=== PATIENT | female | born 1995 | race Native Hawaiian/Other Pacific Islander ===

== ENCOUNTER 2022-01-02 06:42 | Emergency (ER) | payer OTHER ==
[~2022-01-02] VITALS: Ht 165.1 cm; Wt 96.8 kg
[2022-01-02] MEDS ORDERED: LIDOCAINE 5% (LIDODERM) PATCH TD ONE (08:25)
[2022-01-02] MEDS ORDERED: KETOROLAC 30 MG/ML 1ML VIAL IV ONE (08:25)
[2022-01-02] MEDS ORDERED: methocarbamoL 750 MG TAB PO ONE (08:25)
[2022-01-02 08:46] LABS: BASO # 0.1 10^3/uL (0.0-0.2); BASO % 1.3 % (0.0-1.0); EOS # 0.4 10^3/uL (0.0-0.5); EOS % 6.2 % (0.0-3.0); HEMOGLOBIN 10.1 g/dl (12.0-15.5); LYMPH # 2.1 10^3/uL (1.5-5.0); LYMPH % 35.7 % (24.0-44.0); MEAN CORPUSCULAR HEMOGLOBIN 24.1 pg (27.0-33.0); MEAN CORPUSCULAR HGB CONC 30.6 g/dl (32.0-36.5); MEAN CORPUSCULAR VOLUME 78.8 fl (80.0-96.0); MONO # 0.6 10^3/uL (0.0-0.8); NEUTROPHILS # 2.8 10^3/uL (1.5-8.5); NEUTROPHILS % 46.5 % (36.0-66.0); PLATELET COUNT, AUTOMATED 233 10^3/uL (150-450); RED BLOOD COUNT 4.19 10^6/uL (4.00-5.40)
[2022-01-02 09:19] LABS: ERYTHROCYTE SEDIMENTATION RATE 23 mm/hr (0-20)
[2022-01-02 10:51] VITALS: BP 120/61
[2022-01-02] MEDS ORDERED: CYCL-707 PO (10:51)
[2022-01-02] MEDS ORDERED: NAPR-837 PO (10:51)
[2022-01-02] MEDS ORDERED: ASPE4PAD TOP (10:51)
== END 2022-01-02 11:06 | disposition home or self-care (01) ==
LOC: M ED 06:42
DX: O90.81 Anemia of the puerperium (principal); M54.9 Dorsalgia, unspecified; Z79.899 Other long term (current) drug therapy; Z91.018 Allergy to other foods
CPT/HCPCS: 80047; 85025; 85652; 86140; 96374; 99284; J1885